=== PATIENT | male | born 1995 ===

== ENCOUNTER 2020-01-03 10:38 | Emergency (ER) | payer SELFPAY ==
[~2020-01-03] VITALS: Ht 182.9 cm; Wt 79.1 kg
[2020-01-03 10:39] VITALS: BP 128/76
[2020-01-03 11:43] LABS: INFLUENZA A AMPLIFICATION NEGATIVE (NEGATIVE); INFLUENZA B AMPLIFICATION POSITIVE (NEGATIVE)
== END 2020-01-03 13:32 | disposition left against medical advice (07) ==
LOC: M ED 10:38
DX: Z53.21 Procedure and treatment not carried out due to patient leaving prior to being seen by health care provider (principal)